=== PATIENT | female | born 1955 | race Caucasian/White ===

== ENCOUNTER 2021-12-01 09:01 | Observation (INO) | payer BC ==
[~2021-12-01] VITALS: Ht 167.6 cm; Wt 90.0 kg
[2021-12-01] VITALS (20 sets, daily range): BP systolic 122–155; BP diastolic 53–89
[~2021-12-01 09:01] MED LIST: CIPROFLOXACN500 MG PO; LORTAB5 PO; PYRIDIUM200 MG PO; SYNTHROID200 MCG PO
[2021-12-01] MEDS ORDERED: CHOLESTEROL (09:21)
[2021-12-01] MEDS ORDERED: PHENTERMINE XX (09:21)
[2021-12-01 09:23] LABS: HEMATOCRIT 35.1 % (37.0-47.0); HEMOGLOBIN 11.4 g/dl (12.0-16.0); IMMATURE GRANULOCYTES 0.3 % (0.0-5.0); MEAN CORPUSCULAR HGB CONC 32.5 g/dL CAL (32.0-36.0); NEUT# 3.82 thou/uL (2.00-7.15); RED BLOOD COUNT 3.8 mill/uL (4.20-5.60); RED CELL DISTRI WIDTH 13.9 % (11.5-15.5)
--- NOTE | 2021-12-01 09:23 | NUR ---
PT AMBULATES T OROOM 6 FOR EVAL OF ABD PAIN
[2021-12-01 09:27] LABS: MEAN CELL VOLUME 92.4 fL CALC (80.0-100.0)
[2021-12-01 09:53] LABS: URINE BILIRUBIN - DIPSTICK NEGATIVE (NEGATIVE); URINE BLOOD DIPSTICK TRACE-INTACT (NEGATIVE); URINE COLOR YELLOW; URINE GLUCOSE - DIPSTICK NEGATIVE (NEGATIVE); URINE KETONE NEGATIVE (NEGATIVE); URINE LEUK ESTERASE TRACE (NEGATIVE); URINE PROTEIN - DIPSTICK NEGATIVE (NEG-TRACE); URINE UROBILINOGEN - DIPSTICK 0.2 E.U./dL (0.2)
[2021-12-01 09:57] LABS: ALBUMIN 4.3 g/dL (3.2-5.0); ALKALINE PHOSPHATASE 71 u/l (38-126); ANION GAP 16 (6-22 (CALC)); BILIRUBIN, TOTAL 0.5 mg/dL (0.0-1.4); BUN 13 mg/dL (8-23); BUN/CREATININE RATIO 21 (12-20 (CALC)); CARBON DIOXIDE 27 mmol/l (22-30); CHLORIDE 101 mmol/l (95-108); CREATININE 0.6 mg/dL (0.5-1.0); GFR FOR AFR.AMER. > 60 ML/MIN (>=60 (CALC)); GFR OTHER RACES > 60 ML/MIN (>=60 (CALC)); LIPASE 89 u/l (23-300); SGOT/AST 33 u/l (9-36); SODIUM 139 mmol/l (137-146); TOTAL PROTEIN 7.8 g/dL (6.3-8.2)
[2021-12-01 10:08] LABS: URINE NITRITE - DIPSTICK NEGATIVE (Negative)
--- NOTE | 2021-12-01 10:45 | NUR ---
Reassessment of patient completed. No distress noted.
--- NOTE | 2021-12-01 11:29 | NUR ---
Reassessment of patient completed. No distress noted.
--- NOTE | 2021-12-01 12:30 | NUR ---
Reassessment of patient completed. No distress noted.
--- NOTE | 2021-12-01 13:31 | NUR ---
PT IN ROOM CHANGED COMPLETLY INTO GOWN, REMOVED JEWLERY, RUNNING FLUID AND PT IS AWAITING SURGERY. NAD
--- NOTE | 2021-12-01 13:36 | NUR ---
SPOKE TO EL ON MED SURGE TO CONFIRM PATIENT CAN BE TRANSPORTED UPSTAIRS AT THIS TIME. CONFIRMED THERE ARE ORDERS FROM [facility] IN, BUT NOT NIRALI. SHE STATED THAT NIRALI INFORMED HER THE PATIENT WAS COMPLETELY UNDER FIORUCCI AT THIS TIME AND WE CAN BRING THE PATIENT UP.
--- NOTE | 2021-12-01 13:49 | NUR ---
PATIENT TRANSFERRED UPSTAIRS VIA STRETCHER. BEDSIDE REPORT PROVIDED TO RN. PATIENT IN NAD.
--- NOTE | 2021-12-01 13:58 | NUR ---
PT'S DAUGHTER MARIE TOOK MOTHER'S PROPERTY/BELONGING HOME PER MOTHER'S REQUEST
--- NOTE | 2021-12-01 19:36 | NUR ---
Late Entry 1730 Pt is back from surgery AOX3 C/O pain 9 out of 10 but refuses pain med at this time , 3 small surgical incisions noted on the abdominal wall with surgiglue
[2021-12-02 03:32] VITALS: BP 122/55
[2021-12-02 06:31] VITALS: BP 126/73
[2021-12-02] MEDS ORDERED: PERCOCET 5/325M1 TAB PO (14:26)
--- NOTE | 2021-12-02 15:43 | NUR ---
LATE ENTRY 0800 RECEIVED PATIENT IN BED AOx3 ,DENIES PAIN AT THIS TIME , AMBULATES TO THE BATHROOM WITHOUT DIFFICULTIES, VSS
[2021-12-08] MEDS ORDERED: MULTIVITAMI9 PO (10:06)
[2021-12-08] MEDS ORDERED: ROSUVASTATIN CAL5 MG (10:06)
== END 2021-12-02 16:05 | disposition home or self-care (01) | DRG 343 ==
LOC: ED 09:01 → ED-I 11:25 → ED 12:19 → MS2 12:20
PROVIDERS: Family Medicine; ADMIT Surgery; ATTEND Surgery
PROC: 0DTJ4ZZ Resection of Appendix, Percutaneous Endoscopic Approach (ICD-10-PCS; principal; 2021-12-01)
DX: K35.30 Acute appendicitis with localized peritonitis, without perforation or gangrene (principal); E03.9 Hypothyroidism, unspecified; Z20.822 Contact with and (suspected) exposure to COVID-19
CPT/HCPCS: G0378; J0131; Q9967